=== PATIENT | male | born 1995 | race Caucasian/White ===

== ENCOUNTER 2017-09-27 18:46 | Emergency (ER) | payer BC ==
[~2017-09-27] VITALS: Ht 167.6 cm; Wt 95.1 kg
[~2017-09-27 18:46] MED LIST: CLARITIN10 MG PO; FLEXERIL10 MG PO; MOBIC7.5 MG PO; MOTRIN600 MG PO; NAPROSYN500 MG PO
[2017-09-27 19:24] LABS: HEMATOCRIT 42.4 % (38.0-50.0); MCH 29.7 PG (29.0-34.0); MCHC 34.7 G/DL (30.0-36.0); MCV 85.7 FL (86-99); MEAN PLAT.VOLUME 10.7 uM^3 (9.0-12.4); PLATELET COUNT 172 K/uL (156-360); RBC DIS.WIDTH-CV 11.8 % (11.8-14.6); RBC DIS.WIDTH-SD 36.3 % (39-53); RED BLOOD COUNT 4.95 M/uL (4.00-5.50); WHITE BLOOD COUNT 6.7 K/uL (4.1-10.2)
[2017-09-27 19:33] LABS: CHLORIDE 105 mEq/L (99-109); POTASSIUM 4.3 mEq/L (3.7-5.4); SODIUM 139 mEq/L (136-147)
[2017-09-27 19:35] LABS: GLUCOSE 90 mg/dL (70-99)
[2017-09-27 19:37] LABS: ANION GAP 8 MEQ/L (2-14); TOTAL BILIRUBIN 0.9 mg/dL (0.0-1.0)
[2017-09-27 19:39] LABS: ALKALINE PHOSPHATASE 68 IU/L (3-129); GFR ESTIMATE (CALCULATED) > 59 mL/min/
[2017-09-27 19:40] LABS: UREA NITROGEN (BUN) 12 mg/dL (9-23)
[2017-09-27 19:46] LABS: ADD MIUA? YES; BILIRUBIN NEGATIVE; BLOOD NEGATIVE; COLOR YELLOW ((YELLOW)); GLUCOSE (STRIP) NEGATIVE; KETONES NEGATIVE; LEUKOCYTES TRACE; NITRITE NEGATIVE; PROTEIN (STRIP) 30; SPECIFIC GRAVITY 1.029 (1.000-1.030); UROBILINOGEN 0.2 MG/DL (0.2-1.0)
[2017-09-27 19:53] LABS: BACTERIA NONE SEEN /HPF; EPITHELIAL CELLS NONE SEEN /HPF; MUCUS TRACE /LPF; RED BLOOD CELLS 0-5 /HPF (0-5); UCUL ADDED? NO; WHITE BLOOD CELLS 0-5 /HPF (0-5)
[2017-09-27] MEDS ORDERED: FLAGYL500 MG PO (22:10)
[2017-09-27] MEDS ORDERED: CIPRO500 MG PO (22:10)
[2017-09-27 22:36] VITALS: BP 105/67
== END 2017-09-27 22:37 | disposition home or self-care (01) ==
LOC: EME 18:46
DX: K52.9 Noninfective gastroenteritis and colitis, unspecified (principal); J45.909 Unspecified asthma, uncomplicated; I45.10 Unspecified right bundle-branch block
CPT/HCPCS: 74177; 80053; 81003; 85027; 99281; 99285; J1885; J7030

== ENCOUNTER 2018-03-11 02:07 | Emergency (ER) | payer BC ==
[~2018-03-11] VITALS: Ht 167.6 cm; Wt 99.8 kg
[~2018-03-11 02:07] MED LIST changes: +CIPRO500 MG PO; +FLAGYL500 MG PO
[2018-03-11] MEDS ORDERED: EPIPEN ADU0.3 MG/0.3 IM (05:18)
[2018-03-11] MEDS ORDERED: MEDROL DOSEPAK4 MG PO (05:18)
[2018-03-11 05:33] VITALS: BP 117/85
== END 2018-03-11 05:34 | disposition home or self-care (01) ==
LOC: EME 02:07
DX: T78.1XXA Other adverse food reactions, not elsewhere classified, initial encounter (principal); J02.9 Acute pharyngitis, unspecified; Z91.018 Allergy to other foods; Z91.010 Allergy to peanuts; F17.200 Nicotine dependence, unspecified, uncomplicated
CPT/HCPCS: 99281; 99284; J7512